=== PATIENT | female | born 1955 | race Caucasian/White ===

== ENCOUNTER 2019-08-28 19:42 | Observation (INO) | payer OTHER, SELFPAY ==
[2019-08-28] MEDS ORDERED: ONDANSETRON 4 MG/2 ML VIAL ONE (20:20)
[2019-08-28] MEDS ORDERED: MORPHINE 2 MG/ML SYR ONE (20:20)
[2019-08-28] MEDS ORDERED: ASPIRIN 81 MG CHEWABLE TABLET ONE (20:20)
[2019-08-28 20:59] LABS: Absolute Lymphocytes (CBC) 2.1 K/uL (0.7-4.9); Basophils % 0.5 % (0-1.3); Hematocrit 39.8 % (36.0-45.0); Lymphocytes % 26.1 % (15.3-44.8); MPV 8.8 fL (7.6-11.3); Protime INR 2.93; RBC Red Blood Cell Count 4.43 M/uL (3.86-4.86)
[2019-08-28 21:13] LABS: ALT/SGPT 17 U/L (12-78); AST/SGOT 21 U/L (15-37); Albumin 3.5 g/dL (3.4-5.0); Alkaline Phosphatase 65 U/L (45-117); BUN Blood Urea Nitrogen 20 mg/dL (7-18); Bicarbonate 26 mmol/L (21-32); Bilirubin Direct < 0.1 mg/dL (0-0.2); Bilirubin Total 0.4 mg/dL (0.2-1.0); Glucose Level 103 mg/dL (74-106); Lipase 140 U/L (73-393); Magnesium 2.2 mg/dL (1.8-2.4); NT PRO-BNP 397 pg/mL (<125); Potassium 4.1 mmol/L (3.5-5.1); Protein, Total 8.3 g/dL (6.4-8.2); Sodium Level 140 mmol/L (136-145); Troponin (Emerg Dept Use Only) < 0.02 ng/mL (0.0-0.045)
[2019-08-28] MEDS ORDERED: ALPRAZOLAM 0.25 MG TABLET PO PRN (22:15)
[2019-08-28] MEDS ORDERED: MORPHINE 4 MG/ML SYR IV PRN (22:15)
[2019-08-28] MEDS ORDERED: ACETAMINOPHEN 500 MG TAB PO PRN (22:15)
--- NOTE | 2019-08-29 00:24 | ER ---
Nurse's Notes [facility] Name: Silke Dill Age: 63 yrs Sex: Female : 1955 Arrival Date: 08/28/2019 Time: 19:43 Bed 20 Private MD: Diagnosis: Chest pain, unspecified Presentation: 08/28 19:45 Presenting complaint: Patient states: that yesterday she started to have right sided fc chest pain with slight shortness of breath and diarrhea. Denies any nausea or vomiting. Transition of care: patient was not received from another setting of care. Onset of symptoms was August 27, 2019. Risk Assessment: Do you want to hurt yourself or someone else? Patient reports no desire to harm self or others. Initial Sepsis Screen: Does the patient meet any 2 criteria? No. Patient's initial sepsis screen is negative. Does the patient have a suspected source of infection? No. Patient's initial sepsis screen is negative. Care prior to arrival: None. 19:45 Method Of Arrival: Wheelchair 19:45 Acuity: RASHAAD 3 fc Historical: - Allergies: 20:06 PENICILLINS; fc - Home Meds: 20:06 Coumadin 5 mg oral tab 1 tab on M,W,F, Sun and 1/2 tab of T,Th,Sat [Active]; fc valsartan-hydrochlorothiazide 80-12.5 mg oral tab 1 tab once daily [Active]; - PMHx: 20:06 Diabetes - NIDDM; fc - PSHx: 20:06 aortic valve replacement; ; fc - Immunization history:: Last tetanus immunization: unknown, Flu vaccine is not up to date. - Coronavirus screen:: The patient has NOT traveled to [place] in the past 14 days. The patient has NOT had contact with known/suspected case of Coronavirus?. - Social history:: Smoking status: Patient denies any tobacco usage or history of. Patient/guardian denies using alcohol, street drugs. - Ebola Screening: : Patient negative for fever greater than or equal to 101.5 degrees Fahrenheit, and additional compatible Ebola Virus Disease symptoms Patient denies exposure to infectious person Patient denies travel to an Ebola-affected area in the 21 days before illness onset. Screenin:45 Abuse screen: Denies threats or abuse. Nutritional screening: No deficits noted. fc Tuberculosis screening: No symptoms or risk factors identified. Fall Risk None identified. Assessment: 20:20 General: Appears in no apparent distress. comfortable, Behavior is calm, cooperative. mg2 Pain: Complains of pain in chest Pain does not radiate. Pain began gradually, Is intermittent. Neuro: Level of Consciousness is awake, alert, obeys commands, Oriented to person, place, time, situation. Cardiovascular: Capillary refill < 3 seconds Patient's skin is warm and dry. Respiratory: Airway is patent Respiratory effort is even, unlabored, Respiratory pattern is regular, symmetrical. GI: No signs and/or symptoms were reported involving the gastrointestinal system. : No signs and/or symptoms were reported regarding the genitourinary system. EENT: No signs and/or symptoms were reported regarding the EENT system. Derm: Skin is intact, is healthy with good turgor, Skin is pink, warm \T\ dry. normal. Musculoskeletal: Circulation, motion, and sensation intact. Capillary refill < 3 seconds. 21:17 Reassessment: Patient appears in no apparent distress at this time. Patient and/or mg2 family updated on plan of care and expected duration. Pain level reassessed. Patient is alert, oriented x 3, equal unlabored respirations, skin warm/dry/pink. 23:05 Reassessment: called the floor and nurse will call me back to receive the report. mg2 23:32 Reassessment: called the nurse but she is still medicating one patient. [place] [facility] [place] per [place]. Vital Signs: 19:45 BP 168 / 78; Pulse 74; Resp 20; Temp 98.1(O); Pulse Ox 100% on R/A; Weight 81.65 kg (R); Height 5 ft. 0 in. (152.40 cm) (R); Pain 8/10; 21:16 BP 161 / 89; Pulse 69; Resp 18; Pulse Ox 98% on R/A; mg2 22:50 BP 134 / 59; Pulse 65; Resp 18; Temp 98; Pulse Ox 99% on R/A; mg2 19:45 Body Mass Index 35.15 (81.65 kg, 152.40 cm) ED Course: 19:43 Patient arrived in ED. cl3 19:45 Jose A Alejandro PA is PHCP. cp 19:45 Raul Kilgore MD is Attending Physician. cp 19:45 Arm band placed on Patient placed in an exam room, on a stretcher. fc 19:45 Patient has correct armband on for positive identification. Placed in gown. Bed in low fc position. Call light in reach. Side rails up X 1. playground monitor on. Pulse ox on. NIBP on. 19:45 No provider procedures requiring assistance completed. fc 20:00 Triage completed. fc 20:07 Aidan Nolen, VICTORIANO is Primary Nurse. mg2 20:37 Inserted saline lock: 20 gauge in left forearm, using aseptic technique. Blood mg2 collected. 21:16 Patient maintains SpO2 saturation greater than 95% on room air. mg2 22:05 Cheli Harvey MD is Hospitalizing Provider. cp 23:15 Chest Single View In Process Unspecified. EDMS 23:43 Patient admitted, IV remains in place. mg2 Administered Medications: 20:35 Drug: morphine 2 mg Route: IVP; Site: left forearm; mg2 21:19 Follow up: Response: No adverse reaction; RASS: Alert and Calm (0) mg2 20:35 Drug: Zofran 4 mg Route: IVP; Site: left forearm; mg2 21:18 Follow up: Response: No adverse reaction mg2 20:35 Drug: Aspirin Chewable Tablet 324 mg Route: PO; mg2 21:18 Follow up: Response: No adverse reaction mg2 Outcome: 22:06 Decision to Hospitalize by Provider. cp 23:43 Admitted to Tele accompanied by tech, via wheelchair, room 410, with chart, Report mg2 called to VICTORIANO Carlos 23:43 Condition: stable 23:43 Instructed on the need for admit, Demonstrated understanding of instructions. 23:56 Patient left the ED. mg2 Signatures: Dispatcher [employer] EDMS Mikayla Barba RN RN fc Jose A Alejandro PA PA cp Aidan Nolen RN RN mg2 Sima Villar cl3
--- NOTE | 2019-08-29 00:24 | EDPHYS ---
Physician Documentation [facility] Name: Silke Dill Age: 63 yrs Sex: Female : 1955 Arrival Date: 08/28/2019 Time: 19:43 Bed 20 Private MD: ED Physician Raul Kilgore HPI: 08/28 20:00 This 63 yrs old Female presents to ER via Unassigned with complaints of Chest cp Pain. 20:00 The patient or guardian reports chest pain that is located primarily in the anterior cp chest wall, right. 20:00 Onset: yesterday. The pain does not radiate. Associated signs and symptoms: Pertinent cp positives: shortness of breath, diarrhea, Pertinent negatives: abdominal pain, cough, diaphoresis, vomiting. Duration: The patient or guardian reports a single episode, that is still ongoing. Historical: - Allergies: 20:06 PENICILLINS; fc - Home Meds: 20:06 Coumadin 5 mg oral tab 1 tab on M,W,F, Sun and 1/2 tab of T,Th,Sat [Active]; fc valsartan-hydrochlorothiazide 80-12.5 mg oral tab 1 tab once daily [Active]; - PMHx: 20:06 Diabetes - NIDDM; fc - PSHx: 20:06 aortic valve replacement; ; fc - Immunization history:: Last tetanus immunization: unknown, Flu vaccine is not up to date. - Coronavirus screen:: The patient has NOT traveled to [place] in the past 14 days. The patient has NOT had contact with known/suspected case of Coronavirus?. - Social history:: Smoking status: Patient denies any tobacco usage or history of. Patient/guardian denies using alcohol, street drugs. - Ebola Screening: : Patient negative for fever greater than or equal to 101.5 degrees Fahrenheit, and additional compatible Ebola Virus Disease symptoms Patient denies exposure to infectious person Patient denies travel to an Ebola-affected area in the 21 days before illness onset. ROS: 20:05 Constitutional: Negative for body aches, chills, fever, poor PO intake. cp 20:05 Eyes: Negative for injury, pain, redness, and discharge. cp 20:05 ENT: Negative for drainage from ear(s), ear pain, sore throat, difficulty swallowing, difficulty handling secretions. 20:05 Cardiovascular: Positive for chest pain, Negative for edema, palpitations. 20:05 Respiratory: Positive for shortness of breath, Negative for cough, wheezing. 20:05 Abdomen/GI: Positive for diarrhea, Negative for vomiting, constipation. 20:05 Back: Negative for pain at rest, pain with movement, radiated pain. 20:05 Skin: Negative for rash. 20:05 Neuro: Negative for altered mental status, headache, syncope, weakness. 20:05 All other systems are negative. Exam: 20:00 ECG was reviewed by the Attending Physician. cp 20:10 Constitutional: The patient appears in no acute distress, alert, awake, cp non-diaphoretic, non-toxic, well developed, well nourished, obese. 20:10 Head/Face: Normocephalic, atraumatic. cp 20:10 Eyes: Periorbital structures: appear normal, Conjunctiva: normal, no exudate, no injection, Sclera: no appreciated abnormality, Lids and lashes: appear normal, bilaterally. 20:10 ENT: External ear(s): are unremarkable, Nose: is normal, Mouth: Lips: moist, Oral mucosa: pink and intact, moist, Posterior pharynx: is normal, airway is patent, no erythema, no exudate. 20:10 Neck: ROM/movement: is normal, is supple, no meningismus, no nuchal rigidity. 20:10 Chest/axilla: Inspection: normal, Palpation: is normal, no crepitus, no tenderness. 20:10 Cardiovascular: Rate: normal, Rhythm: regular, Edema: is not appreciated, JVD: is not appreciated. 20:10 Respiratory: the patient does not display signs of respiratory distress, Respirations: normal, no use of accessory muscles, no retractions, no splinting, no tachypnea, labored breathing, is not present, Breath sounds: are clear throughout, no decreased breath sounds, no wheezing. 20:10 Abdomen/GI: Inspection: abdomen appears normal, Bowel sounds: active, all quadrants, Palpation: abdomen is soft and non-tender, in all quadrants. 20:10 Skin: no rash present. 20:10 Neuro: Orientation: to person, place \T\ time. Mentation: is normal, Motor: moves all fours, strength is normal, Sensation: is normal. Vital Signs: 19:45 BP 168 / 78; Pulse 74; Resp 20; Temp 98.1(O); Pulse Ox 100% on R/A; Weight 81.65 kg fc (R); Height 5 ft. 0 in. (152.40 cm) (R); Pain 8/10; 21:16 BP 161 / 89; Pulse 69; Resp 18; Pulse Ox 98% on R/A; mg2 22:50 BP 134 / 59; Pulse 65; Resp 18; Temp 98; Pulse Ox 99% on R/A; mg2 19:45 Body Mass Index 35.15 (81.65 kg, 152.40 cm) fc MDM: 19:48 Patient medically screened. cp 20:30 Differential diagnosis: abnormal EKG, acute myocardial infarction, cholecystitis, cp Cholelithiasis pancreatitis, pneumothorax, pulmonary embolus, stable angina, thoracic aortic disection, unstable angina. 22:05 Data reviewed: vital signs, nurses notes, lab test result(s), EKG, radiologic studies, cp plain films, and as a result, I will admit patient. 22:05 The patient was given aspirin in the Emergency Department. Test interpretation: by ED cp physician or midlevel provider: ECG, plain radiologic studies, chest xray negative for infiltrates. Physician consultation: Cheli Harvey MD was called at 22:00, was contacted at 22:00, regarding admission, to the telemetry unit. patient's condition. 08/28 19:57 Order name: Basic Metabolic Panel cp 08/28 19:57 Order name: CBC with Diff cp 08/28 19:57 Order name: LFT's cp 08/28 19:57 Order name: Magnesium cp 08/28 19:57 Order name: NT PRO-BNP cp 08/28 19:57 Order name: PT-INR cp 08/28 19:57 Order name: Troponin (emerg Dept Use Only) cp 08/28 19:57 Order name: Lipase cp 08/28 22:59 Order name: CBC with Automated Diff EDIL 08/28 22:59 Order name: Protime (+INR) EDIL 08/28 23:02 Order name: Basic Metabolic Panel EDIL 08/28 23:02 Order name: Liver (Hepatic) Function EDIL 08/28 23:02 Order name: Troponin (Emerg Dept Use Only) EDIL 08/28 23:02 Order name: NT PRO-BNP EDIL 08/28 19:57 Order name: XRAY Chest (1 view) cp 08/28 23:02 Order name: Magnesium [facility]IL 08/28 23:02 Order name: Lipase [facility]IL 08/28 23:15 Order name: Chest Single View [facility] 08/28 23:43 Order name: Echo with Doppler [facility]IL 08/28 23:43 Order name: Echo with Doppler [facility] 08/28 23:44 Order name: Basic Metabolic Panel [facility] 08/28 23:44 Order name: Basic Metabolic Panel [facility] 08/28 23:44 Order name: CBC with Automated Diff [facility] 08/28 23:44 Order name: CBC with Automated Diff [facility] 08/28 23:44 Order name: Lipid Profile [facility] 08/28 23:44 Order name: Lipid Profile [facility] 08/28 23:44 Order name: Troponin I [facility] 08/28 23:44 Order name: Troponin I [facility] 08/28 23:44 Order name: Troponin I [facility] 08/28 19:48 Order name: EKG; Complete Time: 23:07 cp 08/28 19:48 Order name: EKG - Nurse/Tech; Complete Time: 20:36 cp 08/28 19:57 Order name: Cardiac monitoring; Complete Time: 20:35 cp 08/28 19:57 Order name: IV Saline Lock; Complete Time: 20:36 cp 08/28 19:57 Order name: Labs collected and sent; Complete Time: 20:36 cp 08/28 19:57 Order name: O2 Per Protocol; Complete Time: 20:36 cp 08/28 19:57 Order name: O2 Sat Monitoring; Complete Time: 20:36 cp 08/28 23:42 Order name: CONS Physician Consult [place] 08/28 23:42 Order name: Heart Healthy [facility] 08/28 23:43 Order name: EKG Electrocardiogram EDIL 08/28 23:43 Order name: EKG Electrocardiogram EDIL EC:00 Rate is 77 beats/min. Rhythm is regular. MS interval is prolonged at 204 msec. QRS cp interval is normal. QT interval is normal. Interpreted by me. Reviewed by me. Administered Medications: 20:35 Drug: morphine 2 mg Route: IVP; Site: left forearm; mg2 21:19 Follow up: Response: No adverse reaction; RASS: Alert and Calm (0) mg2 20:35 Drug: Zofran 4 mg Route: IVP; Site: left forearm; mg2 21:18 Follow up: Response: No adverse reaction mg2 20:35 Drug: Aspirin Chewable Tablet 324 mg Route: PO; mg2 21:18 Follow up: Response: No adverse reaction mg2 Disposition: 08/29 00:25 Co-signature as Attending Physician, Raul Kilgore MD. rn Disposition: 08/28/19 22:06 Hospitalization ordered by Cheli Harvey for Observation. Preliminary diagnosis is Chest pain, unspecified. - Bed requested for Telemetry/MedSurg (observation). - Status is Observation. mg2 - Condition is Stable. - Problem is new. - Symptoms have improved. Signatures: Dispatcher [employer] EDMS Silvina Tirado RN RN Mikayla Isabel RN RN Raul Kilgore MD MD rn Page, Corey, PA PA cp Gardose, Michele, RN RN mg2 Corrections: (The following items were deleted from the chart) 08/28 22:38 22:06 Hospitalization Ordered by Cheli Harvey MD for Observation. Preliminary dw diagnosis is Chest pain, unspecified. Bed requested for Telemetry/MedSurg (observation). Status is Observation. Condition is Stable. Problem is new. Symptoms have improved. cp 23:56 22:38 08/28/2019 22:06 Hospitalization Ordered by Cheli Harvey MD for Observation. mg2 Preliminary diagnosis is Chest pain, unspecified. Bed requested for Telemetry/MedSurg (observation). Status is Observation. Condition is Stable. Problem is new. Symptoms have improved. dw
[2019-08-29 00:31] VITALS: BMI 38.3
[2019-08-29 06:36] LABS: Absolute Lymphocytes (CBC) 2.4 K/uL (0.7-4.9); Basophils % 0.6 % (0-1.3); Hematocrit 35.9 % (36.0-45.0); Lymphocytes % 31.8 % (15.3-44.8); MPV 8.9 fL (7.6-11.3); RBC Red Blood Cell Count 4.07 M/uL (3.86-4.86)
[2019-08-29 06:50] LABS: BUN Blood Urea Nitrogen 19 mg/dL (7-18); Bicarbonate 30 mmol/L (21-32); Glucose Level 98 mg/dL (74-106); HDL Cholesterol 66 mg/dL (40-60); LDL Cholesterol, Calculated 92 (<130); Potassium 3.7 mmol/L (3.5-5.1); Sodium Level 141 mmol/L (136-145); Troponin I < 0.02 ng/mL (0.0-0.045)
--- NOTE | 2019-08-29 07:17 | RAD REPORT ---
EXAM DESCRIPTION: RAD - Chest Single View - 08/28/2019 8:15 pm CLINICAL HISTORY: chest pain COMPARISON: CHEST SINGLE VIEW dated 01/13/2013; CHEST SINGLE VIEW dated 10/24/2012 TECHNIQUE: AP portable chest image was obtained 08/28/2019 8:15 pm . FINDINGS: Lungs are clear. Trachea is midline. Sternotomy wires are in place. Aortic valve replaceme nt noted. Heart and vasculature are normal. No measurable pleural effusion and no pneumothorax. No ac sofiya bony abnormality seen. No acute aortic findings suspected. IMPRESSION: No acute cardiopulmonary process. No significant interval change.
--- NOTE | 2019-08-29 08:18 | EKG ---
Test Date: 2019-08-28 Test Time: 19:56:14 Life Sciences Director: MEASUREMENT RESULTS: Intervals: Rate: 69 NV: 222 QRSD: 84 QT: 426 QTc: 456 [place]: P: 72 NV: 222 QRS: 29 T: 52 INTERPRETIVE STATEMENTS: Sinus rhythm with 1st degree AV block Otherwise normal ECG Compared to ECG 12/30/2013 07:56:00 First degree AV block now present T-wave abnormality no longer present Electronically Signed On 08-29-19 08:17:44 TRAFFIC DIVISION COMMANDING OFFICER by Rene Ennis
[2019-08-29] MEDS ORDERED: ASPIRIN EC 81 MG TAB PO SCH (09:00)
[2019-08-29] MEDS ORDERED: METOPROLOL TAR 50 MG TAB PO SCH (09:00)
[2019-08-29] MEDS ORDERED: ENOXAPARIN 40 MG/0.4 ML SQ SCH (09:00)
--- NOTE | 2019-08-29 09:16 | P.HP ---
Certification for Inpatient Patient admitted to: Observation With expected LOS: <2 Midnights Patient will require the following post-hospital care: None Practitioner: I am a practitioner with admitting privileges, knowledge of patient current condition, hospital course, and medical plan of care. Services: Services provided to patient in accordance with Admission requirements found in Title 42 Section 412.3 of the Code of Federal Regulations Patient History Date of Service: 08/28/19 Reason for admission: EPIGASTRIC AND STERNAL CHEST PAIN History of Present Illness: PATIENT IS A 63-YEAR-OLD FEMALE WHO CAME INTO THE EMERGENCY ROOM WITH PAIN ALONG THE STERNAL REGION AND THE EPIGASTRIC REGION. THE PAIN WAS VERY SEVERE AND SHE CAME INTO THE EMERGENCY ROOM FOR FURTHER EVALUATION. PATIENT'S INITIAL TROPONINS AND EKG WERE UNREMARKABLE. HOWEVER, PATIENT DOES HAVE MANY RISK FACTORS AND SHE WILL BE ADMITTED TO THE HOSPITAL FOR FURTHER EVALUATION FOR AN ACUTE CORONARY SYNDROME. IF PATIENT'S TROPONINS ARE NEGATIVE AND CARDIAC STATUS IS UNREMARKABLE THE PATIENT SHOULD BE STABLE FOR DISCHARGE HOME. WE WILL GET CARDIOLOGY CONSULTATION AND WILL SEE IF THEY RECOMMEND A STRESS TEST PRIOR TO DISCHARGE. IF THEY DO WE WILL ARRANGE FOR THIS PRIOR TO GOING HOME. Allergies Sulfa (Sulfonamide Antibiotics) Allergy (Mild, Verified 08/29/19 00:29) Hives/Rash Penicillins Adverse Reaction (Intermediate, Verified 08/29/19 00:29) Hives/Rash Home Medications: Valsartan/Hydrochlorothiazide [Valsartan-Hctz 80-12.5 mg Tab] 1 tab PO DAILY Warfarin Sodium [Coumadin*] 2.5 mg PO SEECOM 08/29/19 Warfarin Sodium [Coumadin*] 5 mg PO SEECOM 08/29/19 - Past Medical/Surgical History Has patient received pneumonia vaccine in the past: No Diabetic: Yes -: DM -: aortic valve replacement -: c. section - Family History Father Family History: Reviewed- Non-Contributory - Social History Smoking Status: Never smoker Smoking therapy provided: Yes Alcohol use: No CD- Drugs: No Review of Systems 10-point ROS is otherwise unremarkable Physical Examination - Vital Signs Temperature: 97.5 F Blood Pressure: 145/62 Pulse: 65 Respirations: 16 Pulse Ox (%): 96 - Physical Exam General: Alert, In no apparent distress, Oriented x3 HEENT: Atraumatic, PERRLA, Mucous membr. moist/pink, EOMI, Sclerae nonicteric Neck: Supple, 2+ carotid pulse no bruit, No LAD, Without JVD or thyroid abnormality Respiratory: Clear to auscultation bilaterally, Normal air movement Cardiovascular: Regular rate/rhythm, Normal S1 S2, No murmurs Gastrointestinal: Normal bowel sounds, Soft and benign, Non-distended, No tenderness, No rebound, No guarding Musculoskeletal: No clubbing, No swelling, No tenderness Integumentary: No rashes Neurological: Normal gait, Normal speech, Normal strength at 5/5 x4 extr, Normal tone, Sensation intact, Cranial nerves 3-12 intact, Normal affect Lymphatics: No axilla or inguinal lymphadenopathy - Studies Laboratory Data (last 24 hrs) 08/28/19 20:30: PT 33.2 H, INR 2.93 08/28/19 20:30: WBC 8.1, Hgb 13.1, Hct 39.8, Plt Count 247 08/28/19 20:30: Sodium 140, Potassium 4.1, BUN 20 H, Creatinine 0.82, Glucose 103, Magnesium 2.2, Total Bilirubin 0.4, AST 21, ALT 17, Alkaline Phosphatase 65 , Lipase 140 08/28/19 19:57: Lipase Cancelled 08/28/19 19:57: PT Cancelled, INR Cancelled 08/28/19 19:57: WBC Cancelled, Hgb Cancelled, Hct Cancelled, Plt Count Cancelled 08/28/19 19:57: Sodium Cancelled, Potassium Cancelled, BUN Cancelled, Creatinine Cancelled, Glucose Cancelled, Magnesium Cancelled, Total Bilirubin Cancelled, AST Cancelled, ALT Cancelled, Alkaline Phosphatase Cancelled Assessment & Plan - Problems (Diagnosis) (1) Chest pain, rule out acute myocardial infarction Current Visit: Yes Status: Acute (2) History of hypertension Current Visit: Yes Status: Acute (3) Family history of coronary artery disease Current Visit: Yes Status: Acute (4) Pneumonia Current Visit: Yes Status: Acute - Plan 1. SERIAL TROPONINS AND EKG 2. CARDIOLOGY CONSULTATION 3. ECHOCARDIOGRAM AND POSSIBLY REPEAT AN INPATIENT STRESS TEST(PENDING CARDIOLOGY EVALUATION) 4. ANTI-PLATELET THERAPY, ANTI COAGULATION, BETA-DEBBIE, STATIN, AND O2 NEEDED 5. IV MORPHINE FOR PAIN 6. NITRO P.R.N. Discharge Plan: Home Plan to discharge in: Greater than 2 days - Advance Directives Does patient have a Living Will: No Does patient have a Durable POA for Healthcare: No Critical Care: No Time Spent Managing PTS Care (In Minutes): 45
[2019-08-29] MEDS ORDERED: ONDANSETRON 4 MG/2 ML VIAL IV PRN (10:07)
--- NOTE | 2019-08-29 11:12 | ECHO ---
HEIGHT: 5 ft 0 in WEIGHT: 193 lb 0 oz DATE OF STUDY: 08/29/[address]: Cheli Harvey MD 2-DIMENSIONAL: YES M.MODE: YES DOPPLER: YES COLOR FLOW: YES TDS: NO PORTABLE: NO DEFINITY: NO BUBBLE STUDY: NO DIAGNOSIS: CHEST PAIN CARDIAC HISTORY: CATHERIZATION: YES SURGERY: YES PROSTHETIC VALVE: YES PACEMAKER: NO MEASUREMENTS (cm) DIASTOLIC (NORMALS) SYSTOLIC (NORMALS) IVSd 1.1 (0.6-1.2) LA Diam 3.7 (1.9-4.0) LVEF 68% LVIDd 4.3 (3.5-5.7) LVIDs 2.7 (2.0-3.5) %FS 38% LVPWd 1.0 (0.6-1.2) Ao Diam 2.2 (2.0-3.7) 2 DIMENSIONAL ASSESSMENT: RIGHT ATRIUM: NORMAL LEFT ATRIUM: NORMAL RIGHT VENTRICLE: NORMAL LEFT VENTRICLE: NORMAL TRICUSPID VALVE: NORMAL MITRAL VALVE: NORMAL PULMONIC VALVE: NORMAL AORTIC VALVE: PROSTHETIC PERICARDIAL EFFUSION: NONE AORTIC ROOT: NORMAL LEFT VENTRICULAR WALL MOTION: NORMAL. DOPPLER/COLOR FLOW: MILD PROSTHETIC AORTIC VALVE STENOSIS. PEAK/MEAN GRADIENT 40/21mmHg. ESTIMATED AORTIC VALVE AREA 1.6 CENTIMETERS SQUARED. NO AORTIC REGURGITATION. MILD TRICUSPID REGURGITATION, NORMAL RIGHT VENTRICULAR SYSTOLIC PRESSURE. COMMENTS: NORMAL LEFT VENTRICULAR EJECTION FRACTION. PROSTHETIC AORTIC VALVE WITH MILD AORTIC STENOSIS WITH NO AORTIC REGURGITATION. MILD TRICUSPID REGURGITATION. TECHNOLOGIST: JACY TAI
--- NOTE | 2019-08-29 11:26 | EKG ---
Test Date: 2019-08-29 Test Time: 08:51:50 Distribution Tech: RT Plunkett MEASUREMENT RESULTS: Intervals: Rate: 59 RI: 250 QRSD: 86 QT: 442 QTc: 437 [place]: P: 5 RI: 250 QRS: 28 T: 41 INTERPRETIVE STATEMENTS: Sinus bradycardia with 1st degree AV block Otherwise normal ECG Compared to ECG 08/28/2019 19:56:14 Sinus rhythm no longer present Electronically Signed On 08-29-19 11:25:38 MARKETING AREA MANAGER by Rene Enins
--- NOTE | 2019-08-29 14:52 | P.DS ---
Admission Date: 08/28/19 Discharge Date: 08/29/19 Disposition: ROUTINE DISCHARGE Discharge Condition: GOOD Reason for Admission: EPIGASTRIC AND STERNAL CHEST PAIN - Problems (1) Chest pain, rule out acute myocardial infarction Current Visit: Yes Status: Acute (2) Family history of coronary artery disease Current Visit: Yes Status: Acute (3) History of aortic valve replacement Current Visit: Yes Status: Acute (4) History of hypertension Current Visit: Yes Status: Acute Brief History of Present Illness: 63-year-old woman with a history of aortic valve replacement presented to the ED with a complaint of anterior chest pain and epigastric pain, rated as severe. Her initial troponin in the ED was negative. Chest x-ray showed no acute disease. EKG read sinus bradycardia with first-degree AV block. Patient was placed under observation for acute coronary syndrome rule out. Hospital Course: Troponin trended was negative. The patient experienced intermittent chest pain during the hospital stay. She also developed nausea from the IV opioids given for the chest pain. Examination revealed significantly tender lower sternal area. The patient's chest pain is noncardiac and secondary to musculoskeletal pain. Echocardiogram done showed normal EF and no wall motion abnormality. She is on Coumadin anticoagulation and her INR was therapeutic. Acute coronary syndrome has been ruled out. She is deemed clinically stable for discharge. She is discharged to have outpatient stress test done. She has been provided with the phone number to call to schedule the stress test. Vital Signs/Physical Exam: Temp Pulse Resp BP Pulse Ox 97.8 F 58 16 134/63 95 08/29/19 12:00 08/29/19 12:00 08/29/19 12:00 08/29/19 12:08/29/19 12:00 General: Alert, In no apparent distress, Oriented x3 HEENT: Mucous membr. moist/pink, Sclerae nonicteric Neck: Supple, JVD not distended Respiratory: Normal air movement, Other (Lower sternum is tender to palpation.) Cardiovascular: No edema, Regular rate/rhythm, Normal S1 S2 Gastrointestinal: Normal bowel sounds, Soft and benign, No tenderness Musculoskeletal: No swelling, No erythema Integumentary: No rashes Neurological: Normal strength at 5/5 x4 extr Laboratory Data at Discharge: WBC 7.6 K/uL (4.3-10.9) 08/29/19 05:48 Hgb 11.9 g/dL (12.0-15.0) L 08/29/19 05:48 Hct 35.9 % (36.0-45.0) L 08/29/19 05:48 Plt Count 255 K/uL (152-406) 08/29/19 05:48 PT 33.2 SECONDS (9.5-12.5) H 08/28/19 20:30 INR 2.93 08/28/19 20:30 Sodium 141 mmol/L (136-145) 08/29/19 05:48 Potassium 3.7 mmol/L (3.5-5.1) 08/29/19 05:48 BUN 19 mg/dL (7-18) H 08/29/19 05:48 Creatinine 0.95 mg/dL (0.55-1.3) 08/29/19 05:48 Glucose 98 mg/dL (74-106) 08/29/19 05:48 Magnesium 2.2 mg/dL (1.8-2.4) 08/28/19 20:30 Total Bilirubin 0.4 mg/dL (0.2-1.0) 08/28/19 20:30 AST 21 U/L (15-37) 08/28/19 20:30 ALT 17 U/L (12-78) 08/28/19 20:30 Alkaline Phosphatase 65 U/L (45-117) 08/28/19 20:30 Troponin I < 0.02 ng/mL (0.0-0.045) 08/29/19 05:48 Triglycerides 67 mg/dL (<150) 08/29/19 05:48 Cholesterol 171 mg/dL (<200) 08/29/19 05:48 HDL Cholesterol 66 mg/dL (40-60) H 08/29/19 05:48 Cholesterol/HDL Ratio 2.59 08/29/19 05:48 Lipase 140 U/L (73-393) 08/28/19 20:30 Home Medications: Tramadol HCl [Ultram] 50 mg PO Q6H PRN #20 tablet 08/29/19 Valsartan/Hydrochlorothiazide [Valsartan-Hctz 80-12.5 mg Tab] 1 tab PO DAILY Warfarin Sodium [Coumadin*] 2.5 mg PO SEECOM 08/29/19 Warfarin Sodium [Coumadin*] 5 mg PO SEECOM 08/29/19 New Medications: Tramadol HCl [Ultram] 50 mg PO Q6H PRN #20 tablet PRN Reason: Pain Scale 5-7 (Moderate) Diet: AHA Activity: Fall precautions Followup: Glenn Tejeda MD [ACTIVE - CAN ADMIT] - 1-2 Weeks
[2019-08-29 16:17] VITALS: BP 114/53; TEMP 97.5
[2019-08-29 16:24] VITALS: O2SAT 96
[2019-08-29] MEDS ORDERED: WARFARIN SODIUM 3 MG TAB PO SCH (21:00)
[2019-08-29] MEDS ORDERED: WARFARIN SODIUM 6 MG TAB PO SCH (21:00)
[2019-08-29] MEDS ORDERED: METOPROLOL TAR 25 MG TAB PO SCH (21:00)
== END 2019-08-29 20:50 | disposition home or self-care (01) ==
LOC: ER 19:42 → ERHOLD 22:43 → 4TH 23:42
PROVIDERS: ADMIT Hospitalist; ATTEND Internal Medicine
DX: R07.89 Other chest pain (principal); R00.1 Bradycardia, unspecified; I44.0 Atrioventricular block, first degree; R11.0 Nausea; T40.2X5A Adverse effect of other opioids, initial encounter; X58.XXXA Exposure to other specified factors, initial encounter; I35.0 Nonrheumatic aortic (valve) stenosis; I07.1 Rheumatic tricuspid insufficiency; I10 Essential (primary) hypertension; E11.9 Type 2 diabetes mellitus without complications; Z79.01 Long term (current) use of anticoagulants; Z79.899 Other long term (current) drug therapy; Z95.2 Presence of prosthetic heart valve; Z82.49 Family history of ischemic heart disease and other diseases of the circulatory system
CPT/HCPCS: 36415; 71045; 80048; 80061; 80076; 83690; 83735; 83880; 84484; 85025; 85610; 93005; 93306; 96374; 96375; 99285; G0378; J2270; J2405

== ENCOUNTER 2020-01-13 18:27 | Emergency (ER) | payer OTHER, SELFPAY ==
[2020-01-13] MEDS ORDERED: ONDANSETRON 4 MG/2 ML VIAL ONE (19:45)
[2020-01-13] MEDS ORDERED: NA CHLORIDE 0.9% 1,000 ML ONE (19:45)
[2020-01-13 19:47] LABS: Absolute Lymphocytes (CBC) 1.9 K/uL (0.7-4.9); Basophils % 0.9 % (0-1.3); Hematocrit 38.2 % (36.0-45.0); Lymphocytes % 22.4 % (15.3-44.8); MPV 9.3 fL (7.6-11.3); RBC Red Blood Cell Count 4.26 M/uL (3.86-4.86)
[2020-01-13 19:58] LABS: Albumin 3.8 g/dL (3.4-5.0); Bilirubin Direct 0.1 mg/dL (0-0.2); Bilirubin Total 0.4 mg/dL (0.2-1.0); Potassium 4.2 mmol/L (3.5-5.1); Protein, Total 8.7 g/dL (6.4-8.2)
--- NOTE | 2020-01-13 21:03 | EDPHYS ---
Physician Documentation [facility] Name: Silke Dill Age: 64 yrs Sex: Female : 1955 Arrival Date: 01/13/2020 Time: 18:31 Bed 6 Private MD: ED Physician Jorge Casas HPI: 01/12 19:17 This 64 yrs old Female presents to ER via Wheelchair with complaints of Heat pm1 Exhaustion. 19:17 The patient has experienced near-syncope, felt faint. Onset: The symptoms/episode pm1 began/occurred just prior to arrival. Context: occurred while the patient was waiting outside the hospital for her . Just prior to the episode the patient experienced dizziness, lightheadedness. Associated injury: The patient did not suffer any apparent associated injury. Associated signs and symptoms: Pertinent positives: nausea, Pertinent negatives: abdominal pain, chest pain, palpitations, shortness of breath. Current symptoms: dizziness and nausea that has improved. Patient was waiting outside in the heat for her who was a patient in the ER. Historical: - Allergies: 18:40 PENICILLINS; ca1 - Home Meds: 18:40 Coumadin 5 mg Oral tab 1 tab on M,W,F, Sun and 1/2 tab of T,Th,Sat [Active]; ca1 - PMHx: 18:40 Diabetes - NIDDM; Hypertension; ca1 - PSHx: 18:40 aortic valve replacement; ; ca1 - Immunization history:: Adult Immunizations up to date. - Social history:: Smoking status: Patient denies any tobacco usage or history of. ROS: 19:17 Constitutional: Negative for fever, chills, and weight loss, Eyes: Negative for injury, pm1 pain, redness, and discharge, ENT: Negative for injury, pain, and discharge, Neck: Negative for injury, pain, and swelling, Cardiovascular: Negative for chest pain, palpitations, and edema, Respiratory: Negative for shortness of breath, cough, wheezing, and pleuritic chest pain, Back: Negative for injury and pain. 19:17 : Negative for injury, bleeding, discharge, and swelling, MS/Extremity: Negative for injury and deformity, Skin: Negative for injury, rash, and discoloration, Neuro: Negative for headache, weakness, numbness, tingling, and seizure. 19:17 Abdomen/GI: Positive for nausea, Negative for abdominal pain, vomiting, diarrhea, constipation. Exam: 19:17 Abdomen/GI: Exam negative for acute changes, Inspection: abdomen appears normal, pm1 Palpation: abdomen is soft and non-tender, in all quadrants, mass, is not appreciated, rebound tenderness, is not appreciated. 19:17 Constitutional: This is a well developed, well nourished patient who is awake, alert, and in no acute distress. Head/Face: Normocephalic, atraumatic. Neck: Trachea midline, no thyromegaly or masses palpated, and no cervical lymphadenopathy. Supple, full range of motion without nuchal rigidity, or vertebral point tenderness. No Meningismus. Chest/axilla: Normal chest wall appearance and motion. Nontender with no deformity. No lesions are appreciated. Cardiovascular: Regular rate and rhythm with a normal S1 and S2. No gallops, murmurs, or rubs. Normal PMI, no JVD. No pulse deficits. Respiratory: Lungs have equal breath sounds bilaterally, clear to auscultation and percussion. No rales, rhonchi or wheezes noted. No increased work of breathing, no retractions or nasal flaring. Back: No spinal tenderness. No costovertebral tenderness. Full range of motion. Skin: Warm, dry with normal turgor. Normal color with no rashes, no lesions, and no evidence of cellulitis. MS/ Extremity: Pulses equal, no cyanosis. Neurovascular intact. Full, normal range of motion. 19:17 Neuro: Exam negative for acute changes, Orientation: is normal, Mentation: is normal, Motor: is normal, moves all fours, Gait: is steady, at a normal pace, without difficulty. Vital Signs: 18:36 BP 122 / 62; Pulse 69; Resp 19 S; Temp 98.3(O); Pulse Ox 100% on R/A; Weight 72.57 kg ca1 (R); Height 5 ft. 0 in. (152.40 cm) (R); 19:48 BP 178 / 53; Pulse 64; Resp 18 S; Pulse Ox 100% on R/A; jd3 20:52 BP 128 / 53; Pulse 68; Resp 17 S; Pulse Ox 97% on R/A; jd3 18:36 Body Mass Index 31.25 (72.57 kg, 152.40 cm) ca1 MDM: 19:20 Patient medically screened. pm1 20:21 Data reviewed: vital signs. Data interpreted: Pulse oximetry: on room air is 100 %. pm1 Interpretation: normal. Counseling: I had a detailed discussion with the patient and/or guardian regarding: the historical points, exam findings, and any diagnostic results supporting the discharge/admit diagnosis, lab results. 01/12 18:55 Order name: Glucose, Ancillary Testing; Complete Time: 19:17 EDMS 01/12 19:14 Order name: Basic Metabolic Panel; Complete Time: 20:07 tw4 01/12 19:14 Order name: CBC with Diff; Complete Time: 20:07 tw4 01/12 19:14 Order name: Hepatic Function; Complete Time: 20:07 tw4 01/12 19:14 Order name: Lipase; Complete Time: 20:07 tw4 01/12 19:14 Order name: CPK; Complete Time: 20:07 tw4 01/12 18:53 Order name: EKG - Nurse/Tech; Complete Time: 18:53 [facility] 01/12 19:14 Order name: IV Saline Lock; Complete Time: 19:37 tw4 01/12 19:14 Order name: Labs collected and sent; Complete Time: 19:37 tw4 Administered Medications: 19:43 Drug: NS 0.9% 1000 ml Route: IV; Rate: 1000 ml; Site: left antecubital; jd3 20:40 Follow up: Response: No adverse reaction; IV Status: Completed infusion; IV Intake: jd3 1000ml 19:44 Drug: Zofran (Ondansetron) 4 mg Route: IVP; Site: left antecubital; jd3 20:40 Follow up: Response: No adverse reaction jd3 Disposition: 01/13 07:46 Co-signature as Attending Physician, Jorge Casas MD I agree with the assessment and 4 plan of care. Disposition: 01/13/20 21:02 Discharged to Home. Impression: Exposure to excessive natural heat, Dehydration. - Condition is Stable. - Discharge Instructions: Dehydration, Adult, Heat Exhaustion Information, Rehydration, Adult. - Medication Reconciliation Form, Thank You Letter, Antibiotic Education, Prescription Opioid Use form. - Follow up: Emergency Department; When: As needed; Reason: Worsening of condition. Follow up: Private Physician; When: 2 - 3 days; Reason: Recheck today's complaints, Continuance of care, Re-evaluation by your physician. - Problem is new. - Symptoms have improved. Signatures: Dispatcher [employer] EDReuben Ward, STRUCTURAL STEEL WORKER HELPER STRUCTURAL STEEL WORKER HELPER pm1 Justus Huff, VICTORIANO RN jd3 Jorge Casas MD MD tw4 Melissa Connolly RN RN ca1 Corrections: (The following items were deleted from the chart) 01/12 21:03 21:02 01/13/2020 21:02 Discharged to Home. Impression: Dehydration. Condition is pm1 Stable. Forms are Medication Reconciliation Form, Thank You Letter, Antibiotic Education, Prescription Opioid Use. Follow up: Emergency Department; When: As needed; Reason: Worsening of condition. Follow up: Private Physician; When: 2 - 3 days; Reason: Recheck today's complaints, Continuance of care, Re-evaluation by your physician. Problem is new. Symptoms have improved. pm1 21:11 21:03 01/13/2020 21:02 Discharged to Home. Impression: Exposure to excessive natural jd3 heatDehydration. Condition is Stable. Discharge Instructions: Dehydration, Adult, Heat Exhaustion Information, Rehydration, Adult. Forms are Medication Reconciliation Form, Thank You Letter, Antibiotic Education, Prescription Opioid Use. Follow up: Emergency Department; When: As needed; Reason: Worsening of condition. Follow up: Private Physician; When: 2 - 3 days; Reason: Recheck today's complaints, Continuance of care, Re-evaluation by your physician. Problem is new. Symptoms have improved. pm1
--- NOTE | 2020-01-13 21:03 | ER ---
Nurse's Notes [facility] Name: Silke Dill Age: 64 yrs Sex: Female : 1955 Arrival Date: 01/13/2020 Time: 18:31 Bed 6 Private MD: Diagnosis: Dehydration;Exposure to excessive natural heat Presentation: 01/12 18:36 Chief complaint: Patient states: <30 minutes, I was waiting for my outside the [facility] truck. He was here. I felt like I was about to pass out, maybe from the heat. Still feels dizzy and lightheaded at this time, reports nausea. Coronavirus screen: Proceed with normal triage. Patient denies a cough. Patient denies shortness of breath or difficulty breathing. Patient denies measured and/or subjective temperature greater than 100.4F prior to today's visit. Patient denies travel on a cruise ship or to a country the [facility] currently lists as an affected area. Patient denies contact with known and/or suspected case of COVID-19. Ebola Screen: Patient negative for fever greater than or equal to 101.5 degrees Fahrenheit, and additional compatible Ebola Virus Disease symptoms Patient denies exposure to infectious person. Patient denies travel to an Ebola-affected area in the 21 days before illness onset. No symptoms or risks identified at this time. Initial Sepsis Screen: Does the patient meet any 2 criteria? No. Patient's initial sepsis screen is negative. Does the patient have a suspected source of infection? No. Patient's initial sepsis screen is negative. Risk Assessment: Do you want to hurt yourself or someone else? Patient reports no desire to harm self or others. Onset of symptoms was January 13, 2020. 18:36 Method Of Arrival: Wheelchair ca1 18:36 Acuity: RASHAAD 3 ca1 Historical: - Allergies: 18:40 PENICILLINS; ca1 - Home Meds: 18:40 Coumadin 5 mg Oral tab 1 tab on M,W,F, Sun and 1/2 tab of T,Th,Sat [Active]; ca1 - PMHx: 18:40 Diabetes - NIDDM; Hypertension; ca1 - PSHx: 18:40 aortic valve replacement; ; ca1 - Immunization history:: Adult Immunizations up to date. - Social history:: Smoking status: Patient denies any tobacco usage or history of. Screenin:47 Abuse screen: Denies threats or abuse. Nutritional screening: No deficits noted. jd3 Tuberculosis screening: No symptoms or risk factors identified. Fall Risk IV access (20 points). Ambulatory Aid- Crutches/Cane/Walker (15 pts). Gait- Weak (10 pts.). Mental Status- Oriented to own ability (0 pts). Total Carr Fall Scale indicates High Risk Score (45 or more points). Fall prevention measures have been instituted. Side Rails Up X 2 Placed Close to Nursing Station Frequent Obs/Assessments Occuring. Assessment: 19:44 General: Appears in no apparent distress. comfortable, Behavior is cooperative, jd3 appropriate for age, anxious. Pain: Denies pain. Neuro: Level of Consciousness is awake, alert, obeys commands, Oriented to person, place, time, situation, Reports dizziness. Cardiovascular: Denies chest pain, Capillary refill < 3 seconds Patient's skin is warm and dry. Rhythm is regular. Respiratory: Airway is patent Respiratory effort is even, unlabored, Respiratory pattern is regular, symmetrical, Denies cough, shortness of breath. GI: Abdomen is round non-distended, Reports nausea. : No signs and/or symptoms were reported regarding the genitourinary system. EENT: No signs and/or symptoms were reported regarding the EENT system. Derm: Skin is intact, Skin is dry, Skin is normal, Skin temperature is warm. Musculoskeletal: Circulation, motion, and sensation intact. Range of motion: intact in all extremities. 21:09 Reassessment: Patient appears in no apparent distress at this time. Patient and/or jd3 family updated on plan of care and expected duration. Pain level reassessed. Patient is alert, oriented x 3, equal unlabored respirations, skin warm/dry/pink. Patient states feeling better. Vital Signs: 18:36 BP 122 / 62; Pulse 69; Resp 19 S; Temp 98.3(O); Pulse Ox 100% on R/A; Weight 72.57 kg ca1 (R); Height 5 ft. 0 in. (152.40 cm) (R); 19:48 BP 178 / 53; Pulse 64; Resp 18 S; Pulse Ox 100% on R/A; jd3 20:52 BP 128 / 53; Pulse 68; Resp 17 S; Pulse Ox 97% on R/A; jd3 18:36 Body Mass Index 31.25 (72.57 kg, 152.40 cm) ca1 ED Course: 18:31 Patient arrived in ED. ag5 18:39 Triage completed. ca1 18:40 Arm band placed on right wrist. ca1 19:17 Reuben Caro NP is PHCP. pm1 19:17 Jorge Casas MD is Attending Physician. pm1 19:23 Justus Huff RN is Primary Nurse. jd3 19:33 Inserted saline lock: 20 gauge in left antecubital area, using aseptic technique. Blood jd3 collected. 19:48 Patient has correct armband on for positive identification. Placed in gown. Bed in low jd3 position. Call light in reach. Side rails up X 1. Pulse ox on. NIBP on. 21:09 No provider procedures requiring assistance completed. IV discontinued, intact, jd3 bleeding controlled, No redness/swelling at site. Pressure dressing applied. Administered Medications: 19:43 Drug: NS 0.9% 1000 ml Route: IV; Rate: 1000 ml; Site: left antecubital; jd3 20:40 Follow up: Response: No adverse reaction; IV Status: Completed infusion; IV Intake: jd3 1000ml 19:44 Drug: Zofran (Ondansetron) 4 mg Route: IVP; Site: left antecubital; jd3 20:40 Follow up: Response: No adverse reaction jd3 Intake: 20:40 IV: 1000ml; Total: 1000ml. jd3 Outcome: 21:02 Discharge ordered by . pm1 21:09 Discharged to home ambulatory, with family. jd3 21:09 Condition: stable 21:09 Discharge instructions given to patient, Instructed on discharge instructions, follow up and referral plans. Demonstrated understanding of instructions, follow-up care. 21:11 Patient left the ED. jd3 Signatures: Reuben Caro NP FOOD TASTER pm1 Justus Huff RN RN jMelissa Florentino RN RN ca1 Radha Hi ag5
[2020-01-13 21:37] VITALS: TEMP 98.3
[2020-01-13 21:40] VITALS: BP 128/53; O2SAT 97
== END 2020-01-13 21:11 | disposition home or self-care (01) ==
LOC: ER 18:27
DX: E86.0 Dehydration (principal); R11.0 Nausea; X30.XXXA Exposure to excessive natural heat, initial encounter; Y93.9 Activity, unspecified; Y92.9 Unspecified place or not applicable; I10 Essential (primary) hypertension; Z79.01 Long term (current) use of anticoagulants; Z88.0 Allergy status to penicillin
CPT/HCPCS: 96361; 85025; 80048; 36415; 82550; 82947; 80076; 83690; 96374; 99284; J7030; J2405

== ENCOUNTER 2020-02-09 13:54 | Emergency (ER) | payer OTHER ==
[2020-02-09] MEDS ORDERED: FENTANYL CITR 100 MCG/2 ML ONE (14:38)
[2020-02-09] MEDS ORDERED: ONDANSETRON 4 MG/2 ML VIAL ONE (14:38)
--- NOTE | 2020-02-09 14:52 | RAD REPORT ---
EXAM DESCRIPTION: RAD - Chest Single View - 02/09/2020 2:11 pm CLINICAL HISTORY: CHEST PAIN COMPARISON: Portable August 2019 TECHNIQUE: AP portable chest image was obtained 02/09/2020 2:11 pm . FINDINGS: Lungs are clear. Body habitus and prominent overlying soft tissues accentuate lung base ma rkings. Heart and vasculature are normal. No measurable pleural effusion and no pneumothorax. No acut e bony abnormality seen. No acute aortic findings suspected. IMPRESSION: No acute cardiopulmonary process. No significant interval change.
[2020-02-09 14:53] LABS: Protime INR 1.59
[2020-02-09 14:58] LABS: ALT/SGPT 18 U/L (12-78); AST/SGOT 35 U/L (15-37); Albumin 3.4 g/dL (3.4-5.0); Alkaline Phosphatase 59 U/L (45-117); BUN Blood Urea Nitrogen 24 mg/dL (7-18); Bicarbonate 28 mmol/L (21-32); Bilirubin Direct < 0.1 mg/dL (0-0.2); Bilirubin Total 0.2 mg/dL (0.2-1.0); Glucose Level 105 mg/dL (74-106); NT PRO-BNP 277 pg/mL (<125); Potassium 4.1 mmol/L (3.5-5.1); Protein, Total 8.5 g/dL (6.4-8.2); Sodium Level 141 mmol/L (136-145); Troponin (Emerg Dept Use Only) < 0.02 ng/mL (0.0-0.045)
[2020-02-09 15:20] LABS: Absolute Lymphocytes (CBC) 1.8 K/uL (0.7-4.9); Basophils % 0.5 % (0-1.3); Hematocrit 38.8 % (36.0-45.0); MPV 9.7 fL (7.6-11.3); RBC Red Blood Cell Count 4.42 M/uL (3.86-4.86)
[2020-02-09 17:28] LABS: Blood Morphology Comment NOT SEEN (NOT SEEN); Platelet Estimate ADEQ; Urine White Blood Cell Casts OK
--- NOTE | 2020-02-09 17:46 | RAD REPORT ---
EXAM DESCRIPTION: CT - Chest For Pe Angio - 02/09/2020 5:32 pm CLINICAL HISTORY: CHEST PAIN COMPARISON: Chest Single View dated 02/09/2020 TECHNIQUE: Dynamically enhanced 3 mm thick images of the chest were obtained during administration o f approximately 150mL Isovue 370 IV contrast. Coronal and oblique MIP reconstruction images were gene rated and reviewed. Exam utilizes a protocol to evaluate the pulmonary arterial tree. All CT scans are performed using dose optimization technique as appropriate and may include automated exposure control or mA/KV adjustment according to patient size. FINDINGS: No pulmonary emboli are identified. Motion degradation in the lung bases limits far periph eral pulmonary arterial tree assessment. No far peripheral branch embolic disease suspected. . The aorta as imaged shows no acute or suspicious finding. No pericardial thickening or effusion. Patient has scattered ground-glass opacification in the lung ford more peripheral than central in d istribution. No one area of dense consolidation or mass. No pneumothorax. No pleural effusion or pleu ral based mass. No mediastinal or hilar suspicious masses. No chest wall masses or abnormal axillary lymphadenopathy. IMPRESSION: No pulmonary emboli identified. Bilateral ground-glass opacification pattern in the lung ford.This pattern has been well described in COVID-19 pneumonia patients. Correlation is needed with clinical presentation and any COVID-19 carin ting results. The lung parenchymal pattern can be seen as well with non COVID pneumonia or alveolitis. Scattered al veolar edema would be possible as well.
[2020-02-09] MEDS ORDERED: dexAMETHasone 10 MG/ML VIAL ONE (19:05)
--- NOTE | 2020-02-09 19:06 | ER ---
Nurse's Notes [facility] Name: Silke Dill Age: 64 yrs Sex: Female : 1955 Arrival Date: 02/09/2020 Time: 13:54 Bed 19 Private MD: Diagnosis: Viral Respiratory Infection;Dizziness Presentation: 02/08 14:15 Chief complaint: Patient states: chest pain that started last night, /10. Middle chest/epigastric area that is constant. Coronavirus screen: Client denies travel out of the [place] in the last 14 days. daughter was dx with covid 2 weeks ago. Ebola Screen: No symptoms or risks identified at this time. Initial Sepsis Screen: Does the patient meet any 2 criteria? No. Patient's initial sepsis screen is negative. Does the patient have a suspected source of infection? No. Patient's initial sepsis screen is negative. Risk Assessment: Do you want to hurt yourself or someone else? Patient reports no desire to harm self or others. Onset of symptoms was February 08, 2020. 14:15 Method Of Arrival: Ambulatory 14:15 Acuity: RASHAAD 3 Historical: - Allergies: 14:22 PENICILLINS; - Home Meds: 14:22 Coumadin 5 mg Oral tab 1 tab on M,W,F, Sun and 1/2 tab of T,Th,Sat [Active]; valsartan-hydrochlorothiazide 80-12.5 mg Oral tab 1 tab once daily [Active]; - PMHx: 14:22 Diabetes - NIDDM; Hypertension; - PSHx: 14:22 open heart surgery; ; - Immunization history:: Adult Immunizations unknown. - Social history:: Smoking status: Patient denies any tobacco usage or history of. Screenin:24 Abuse screen: Denies threats or abuse. Nutritional screening: No deficits noted. Tuberculosis screening: No symptoms or risk factors identified. Fall Risk None identified. Assessment: 14:22 General: Appears uncomfortable, Behavior is cooperative, anxious. Pain: Complains of pain in xyphoid area and mid-sternal area Pain does not radiate. Pain currently is 7 out of 10 on a pain scale. Quality of pain is described as Pain began 1 day ago. Neuro: Level of Consciousness is awake, alert, obeys commands, Oriented to person, place, time, situation, Appropriate for age. Cardiovascular: Capillary refill < 3 seconds Patient's skin is warm and dry. Cardiovascular: Reports chest pain, Rhythm is regular. Respiratory: Reports shortness of breath Airway is patent Respiratory effort is even, unlabored, Respiratory pattern is regular, symmetrical. Derm: Skin is intact, is healthy with good turgor, Skin is dry. 15:28 Reassessment: Patient and/or family updated on plan of care and expected duration. Pain ah level reassessed. Patient is alert, oriented x 3, equal unlabored respirations, skin warm/dry/pink. awaiting lab results. Pt just returned from restroom with assist x1 staff. Tolerated well. 18:00 Reassessment: Patient and/or family updated on plan of care and expected duration. Pain ah level reassessed. Patient is alert, oriented x 3, equal unlabored respirations, skin warm/dry/pink. troponin repeated at this time. Pt states that her pain is better. No needs voiced. 19:15 Reassessment: Discharge instructions given at this time. Pt voiced understanding. Vital Signs: 14:00 BP 144 / 74; Pulse 67; Resp 18; Pulse Ox 99% on R/A; ks7 14:15 BP 144 / 74; Pulse 66; Resp 19; Temp 98.6; Pulse Ox 98% ; Weight 72.57 kg; Height 4 ft. ah 11 in. (149.86 cm); Pain 7/10; 15:30 BP 117 / 90; Pulse 53; Resp 18; Pulse Ox 97% on R/A; ks7 16:00 BP 116 / 87; Pulse 53; Resp 18; Pulse Ox 97% on R/A; ks7 17:00 BP 158 / 79; Pulse 53; Resp 18; Pulse Ox 94% on R/A; ks7 17:45 BP 132 / 48; Pulse 58; Resp 18; Temp 98(O); Pulse Ox 97% ; Pain 0/10; ks7 19:17 BP 150 / 57; Pulse 61; Resp 18; Pulse Ox 94% ; ah 14:15 Body Mass Index 32.32 (72.57 kg, 149.86 cm) ED Course: 13:54 Patient arrived in ED. ag5 13:56 Jesus Cruz PA is PHCP. jr8 13:56 Raul Kilgore MD is Attending Physician. jr 14:11 Tracie Ennis, RN is Primary Nurse. 14:21 Triage completed. 14:24 EKG done, by ED staff. 14:24 Patient maintains SpO2 saturation greater than 95% on room air. ah 14:24 Patient has correct armband on for positive identification. Placed in gown. Bed in low ah position. Call light in reach. awake overnight monitor on. Pulse ox on. NIBP on. 14:25 Initial lab(s) drawn, by ED staff, sent to lab. Inserted saline lock: 20 gauge in left ah hand, using aseptic technique. Blood collected. [facility] by Jesus Cruz PA ashutosh 17:53 Jordan Dhillon PA is PHCP. [facility] 18:03 Inserted saline lock: 22 gauge in left antecubital area, using aseptic technique. [facility] 18:14 Troponin (emerg Dept Use Only) Sent. 19:06 COVID-19 Sent. 19:16 No provider procedures requiring assistance completed. IV discontinued, intact, ah bleeding controlled, No redness/swelling at site. Pressure dressing applied. Administered Medications: 14:50 Drug: fentaNYL (PF) 50 mcg Route: IVP; Site: left wrist; 18:14 Follow up: Response: No adverse reaction 19:12 Follow up: Response: No adverse reaction 14:50 Drug: Zofran (Ondansetron) 4 mg Route: IVP; Site: left wrist; 18:14 Follow up: Response: No adverse reaction 19:11 Follow up: Response: No adverse reaction 18:40 Drug: Decadron - Dexamethasone 10 mg Route: IVP; Site: left antecubital; 19:12 Follow up: Response: No adverse reaction Outcome: 19:06 Discharge ordered by . [facility] 19:16 Discharged to home via wheelchair. 19:16 Condition: good 19:16 Discharge instructions given to patient, Instructed on discharge instructions, follow up and referral plans. Demonstrated understanding of instructions, follow-up care, medications, Prescriptions given X 1. 19:17 Patient left the ED. Addendum: 02/13/2020 12:00 Addendum: COVID-19 Result: Positive result giiven to ED physician to notify pt. i w Physician: Sloitario Blair MD Physician attempted to contact pt. Other: unable to leave voice mail, no voice mail set up. Signatures: Jordan Dhillon PA PA jmm Williams, Irene, RN RN iw Roszak, Josh, PA PA jr8 Radha Hi ag5 Tracie Ennis RN RN Kaitlin Hadley RN RN ks7 Corrections: (The following items were deleted from the chart) 02/08 17:57 17:53 BP 132 / 48; Pulse 58bpm; Resp 18bpm; Pulse Ox 97%; Temp 98F Oral; Pain 0/10; ks7 ks7
--- NOTE | 2020-02-09 19:06 | EDPHYS ---
Physician Documentation [facility] Name: Silke Dill Age: 64 yrs Sex: Female : 1955 Arrival Date: 02/09/2020 Time: 13:54 Bed 19 Private MD: ED Physician Raul Kilgore HPI: 02/08 14:45 This 64 yrs old Female presents to ER via Ambulatory with complaints of Chest jr8 Pain. 14:45 The patient or guardian reports chest pain that is located primarily in the substernal jr8 area. Onset: acutely, last night. The pain does not radiate. Associated signs and symptoms: Pertinent positives: None. The chest pain is described as a heaviness. Duration: The patient or guardian reports a single episode, that is still ongoing. Modifying factors: The symptoms are alleviated by nothing. the symptoms are aggravated by nothing. Severity of pain: At its worst the pain was moderate in the emergency department the pain is unchanged. The patient has not experienced similar symptoms in the past. The patient has not recently seen a physician. Historical: - Allergies: 14:22 PENICILLINS; - Home Meds: 14:22 Coumadin 5 mg Oral tab 1 tab on M,W,F, Sun and 1/2 tab of T,Th,Sat [Active]; valsartan-hydrochlorothiazide 80-12.5 mg Oral tab 1 tab once daily [Active]; - PMHx: 14:22 Diabetes - NIDDM; Hypertension; - PSHx: 14:22 open heart surgery; ; - Immunization history:: Adult Immunizations unknown. - Social history:: Smoking status: Patient denies any tobacco usage or history of. ROS: 14:45 Eyes: Negative for injury, pain, redness, and discharge, ENT: Negative for injury, jr8 pain, and discharge, Neck: Negative for injury, pain, and swelling, Respiratory: Negative for shortness of breath, cough, wheezing, and pleuritic chest pain, Abdomen/GI: Negative for abdominal pain, nausea, vomiting, diarrhea, and constipation, Back: Negative for injury and pain, MS/Extremity: Negative for injury and deformity, Skin: Negative for injury, rash, and discoloration, Neuro: Negative for headache, weakness, numbness, tingling, and seizure. 14:45 Cardiovascular: Positive for chest pain, Negative for edema, orthopnea, palpitations, paroxysmal nocturnal dyspnea. Exam: 14:45 Eyes: Pupils equal round and reactive to light, extra-ocular motions intact. Lids and jr8 lashes normal. Conjunctiva and sclera are non-icteric and not injected. Cornea within normal limits. Periorbital areas with no swelling, redness, or edema. ENT: Nares patent. No nasal discharge, no septal abnormalities noted. Tympanic membranes are normal and external auditory canals are clear. Oropharynx with no redness, swelling, or masses, exudates, or evidence of obstruction, uvula midline. Mucous membranes moist. Neck: Trachea midline, no thyromegaly or masses palpated, and no cervical lymphadenopathy. Supple, full range of motion without nuchal rigidity, or vertebral point tenderness. No Meningismus. Cardiovascular: Regular rate and rhythm with a normal S1 and S2. No gallops, murmurs, or rubs. Normal PMI, no JVD. No pulse deficits. Respiratory: Lungs have equal breath sounds bilaterally, clear to auscultation and percussion. No rales, rhonchi or wheezes noted. No increased work of breathing, no retractions or nasal flaring. Abdomen/GI: Soft, non-tender, with normal bowel sounds. No distension or tympany. No guarding or rebound. No evidence of tenderness throughout. Back: No spinal tenderness. No costovertebral tenderness. Full range of motion. Skin: Warm, dry with normal turgor. Normal color with no rashes, no lesions, and no evidence of cellulitis. MS/ Extremity: Pulses equal, no cyanosis. Neurovascular intact. Full, normal range of motion. Neuro: Awake and alert, GCS 15, oriented to person, place, time, and situation. Cranial nerves II-XII grossly intact. Motor strength 5/5 in all extremities. Sensory grossly intact. Cerebellar exam normal. Normal gait. Vital Signs: 14:00 BP 144 / 74; Pulse 67; Resp 18; Pulse Ox 99% on R/A; ks7 14:15 BP 144 / 74; Pulse 66; Resp 19; Temp 98.6; Pulse Ox 98% ; Weight 72.57 kg; Height 4 ft. ah 11 in. (149.86 cm); Pain 7/10; 15:30 BP 117 / 90; Pulse 53; Resp 18; Pulse Ox 97% on R/A; ks7 16:00 BP 116 / 87; Pulse 53; Resp 18; Pulse Ox 97% on R/A; ks7 17:00 BP 158 / 79; Pulse 53; Resp 18; Pulse Ox 94% on R/A; ks7 17:45 BP 132 / 48; Pulse 58; Resp 18; Temp 98(O); Pulse Ox 97% ; Pain 0/10; ks7 19:17 BP 150 / 57; Pulse 61; Resp 18; Pulse Ox 94% ; ah 14:15 Body Mass Index 32.32 (72.57 kg, 149.86 cm) ah MDM: 13:56 Patient medically screened. [facility] 18:43 Data reviewed: vital signs, nurses notes. Counseling: I had a detailed discussion with [facility] the patient and/or guardian regarding: the historical points, exam findings, and any diagnostic results supporting the discharge/admit diagnosis, lab results, radiology results, the need for outpatient follow up, to return to the emergency department if symptoms worsen or persist or if there are any questions or concerns that arise at home. 18:43 Data reviewed: lab test result(s), radiologic studies. [facility] 19:02 ED course: I discussed the CT findings with the patient along with the need for further [facility] evaluation. During this discussion, the patient also had a concern about her ongoing dizziness for the past year. Patient states she has an appt scheduled for further evaluation. Patient states she has tried OTC medication with no relief. Patient was previously diagnosed with BPPV. I do not suspect an acutely threatening process. . 02/08 13:56 Order name: Basic Metabolic Panel [facility] 02/08 13:56 Order name: CBC with Diff 02/08 13:56 Order name: LFT's 02/08 13:56 Order name: Magnesium [facility] 02/08 13:56 Order name: NT PRO-BNP [facility] 02/08 13:56 Order name: PT-INR 02/08 13:56 Order name: Troponin (emerg Dept Use Only) [facility] 02/08 14:58 Order name: Basic Metabolic Panel; Complete Time: 15:01 EDOK 02/08 14:58 Order name: Liver (Hepatic) Function; Complete Time: 15:01 EDOK 02/08 14:58 Order name: Troponin (Emerg Dept Use Only); Complete Time: 15:01 EDMS 02/08 14:58 Order name: NT PRO-BNP; Complete Time: 15:01 EDMS 02/08 14:58 Order name: Magnesium; Complete Time: 15:01 EDMS 02/08 15:15 Order name: Protime (+INR); Complete Time: 15:35 EDMS 02/08 15:29 Order name: CBC with Automated Diff; Complete Time: 17:34 EDMS 02/08 13:56 Order name: XRAY Chest (1 view) [facility] 02/08 13:56 Order name: EKG; Complete Time: 13:57 [facility] 02/08 13:56 Order name: Cardiac monitoring; Complete Time: 14:54 [facility] 02/08 13:56 Order name: EKG - Nurse/Tech; Complete Time: 14:54 [facility] 02/08 13:56 Order name: IV Saline Lock; Complete Time: 14:54 [facility] 02/08 13:56 Order name: Labs collected and sent; Complete Time: 14:54 [facility] 02/08 14:52 Order name: RAD; Complete Time: 15:01 EDMS 02/08 15:56 Order name: CT Chest For PE Angio [facility] 02/08 17:29 Order name: CBC Smear Scan; Complete Time: 17:34 EDMS 02/08 17:47 Order name: CT; Complete Time: 17:49 EDMS 02/08 17:48 Order name: Troponin (emerg Dept Use Only) [facility] 02/08 18:35 Order name: Troponin (Emerg Dept Use Only); Complete Time: 18:42 EDMS 02/08 18:45 Order name: COVID-19 [facility] 02/08 13:56 Order name: O2 Per Protocol; Complete Time: 14:54 [facility] 02/08 13:56 Order name: O2 Sat Monitoring; Complete Time: 14:54 jr Administered Medications: 14:50 Drug: fentaNYL (PF) 50 mcg Route: IVP; Site: left wrist; ah 18:14 Follow up: Response: No adverse reaction ah 19:12 Follow up: Response: No adverse reaction ah 14:50 Drug: Zofran (Ondansetron) 4 mg Route: IVP; Site: left wrist; ah 18:14 Follow up: Response: No adverse reaction ah 19:11 Follow up: Response: No adverse reaction ah 18:40 Drug: Decadron - Dexamethasone 10 mg Route: IVP; Site: left antecubital; 19:12 Follow up: Response: No adverse reaction Disposition: 02/09 07:03 Co-signature as Attending Physician, Raul Kilgore MD. rn Disposition: 02/09/20 19:06 Discharged to Home. Impression: Viral Respiratory Infection, Dizziness. - Condition is Stable. - Discharge Instructions: Dizziness, [facility]iana [facility] Self-Care, COVID-19. - Prescriptions for Meclizine 25 mg Oral Tablet - take 1 tablet by ORAL route every 8 hours As needed; 30 tablet. - Medication Reconciliation Form, Thank You Letter, Antibiotic Education, Prescription Opioid Use form. - Follow up: Private Physician; When: 2 - 3 days; Reason: Recheck today's complaints, Continuance of care, Re-evaluation by your physician. Signatures: Dispatcher [employer] EDMS Jordan Dhillon PA PA jmm Nieto, Roman, MD MD rn Roszak, Josh, PA PA jr8 Tracie Ennis RN RN Corrections: (The following items were deleted from the chart) 02/08 19:17 19:06 02/09/2020 19:06 Discharged to Home. Impression: Viral Respiratory Infection; Dizziness. Condition is Stable. Forms are Medication Reconciliation Form, Thank You Letter, Antibiotic Education, Prescription Opioid Use. Follow up: Private Physician; When: 2 - 3 days; Reason: Recheck today's complaints, Continuance of care, Re-evaluation by your physician. dot
[2020-02-09 19:54] VITALS: TEMP 98
[2020-02-09 19:56] VITALS: BP 150/57; O2SAT 94
--- NOTE | 2020-02-10 07:50 | EKG ---
Test Date: 2020-02-09 Test Time: 14:03:07 Ceramic Engineer: AAMIR MEASUREMENT RESULTS: Intervals: Rate: 61 DC: 196 QRSD: 78 QT: 420 QTc: 422 [place]: P: 73 DC: 196 QRS: 34 T: 61 INTERPRETIVE STATEMENTS: Normal sinus rhythm Nonspecific ST abnormality Abnormal ECG Compared to ECG 01/13/2020 18:48:08 ST (T wave) deviation now present Electronically Signed On 02-10-20 07:49:03 CDT by Glenn Tejeda
== END 2020-02-09 19:17 | disposition home or self-care (01) ==
LOC: ER 13:54
DX: U07.1 COVID-19 (principal); J22 Unspecified acute lower respiratory infection; R42 Dizziness and giddiness; I10 Essential (primary) hypertension; E11.9 Type 2 diabetes mellitus without complications; Z79.01 Long term (current) use of anticoagulants; Z88.0 Allergy status to penicillin
CPT/HCPCS: 93005 ×2; 85025; 80048; 36415; 83735; 85610; 80076; 84484 ×2; 83880; 71275; 71045; 99285; U0002; Q9967; J3010; J1100; J2405

== ENCOUNTER 2020-06-08 12:56 | Emergency (ER) | payer OTHER ==
[2020-06-08] MEDS ORDERED: ALBUTEROL INHALER 60 PUFF/8 GM IH ONE (15:19)
--- NOTE | 2020-06-08 16:07 | ER ---
Nurse's Notes [facility] Name: Silke Dill Age: 64 yrs Sex: Female : 1955 Arrival Date: 06/08/2020 Time: 12:58 Bed 7 Private MD: Diagnosis: Acute bronchitis, unspecified Presentation: 06/08 13:35 Chief complaint: Patient states: I've been real sick for 3 - 4 days. Coughing real bad, ca1 my lungs hurt when I cough. I only had fever 1 day, about 2 days ago. Denies congestion, N/V/D, sorethroat. Coronavirus screen: Client denies travel out of the [place] in the last 14 days. cough unrelated to allergies, fever, Client presents with at least one sign or symptom that may indicate coronavirus-19. Standard/surgical mask placed on the client. Provider contacted for isolation considerations. The client reports previous COVID testing was negative. Date of collection: March 2020. Ebola Screen: Patient negative for fever greater than or equal to 101.5 degrees Fahrenheit, and additional compatible Ebola Virus Disease symptoms Patient denies exposure to infectious person. Patient denies travel to an Ebola-affected area in the 21 days before illness onset. No symptoms or risks identified at this time. Initial Sepsis Screen: Does the patient meet any 2 criteria? No. Patient's initial sepsis screen is negative. Does the patient have a suspected source of infection? No. Patient's initial sepsis screen is negative. Risk Assessment: Do you want to hurt yourself or someone else? Patient reports no desire to harm self or others. Onset of symptoms was June 08, 2020. 13:35 Method Of Arrival: Wheelchair ca1 13:35 Acuity: RASHAAD 3 ca1 Historical: - Allergies: 13:39 PENICILLINS; ca1 - Home Meds: 13:39 Coumadin 5 mg Oral tab 1 tab on M,W,F, Sun and 1/2 tab of T,Th,Sat [Active]; ca1 - PMHx: 13:39 Diabetes - NIDDM; Hypertension; Vertigo; ca1 - PSHx: 13:39 open heart surgery; ; ca1 - Immunization history:: Adult Immunizations up to date, Flu vaccine is not up to date. - Social history:: Smoking status: Patient/guardian denies using tobacco, the patient reports quitting approximately 11 years ago. Screenin:01 Abuse screen: Denies threats or abuse. Denies injuries from another. Nutritional sv screening: No deficits noted. Tuberculosis screening: No symptoms or risk factors identified. Fall Risk None identified. Assessment: 15:00 General: Appears in no apparent distress. comfortable, well developed, Behavior is sv calm, cooperative, appropriate for age. General: Reports fever for 1-2 days. Pain: Complains of pain in chest Pain currently is 6 out of 10 on a pain scale. Pain began 2-3 days ago. Is intermittent, episodic, Aggravated by coughing. Neuro: Level of Consciousness is awake, alert, obeys commands, Oriented to person, place, time, situation, Moves all extremities. Full function Gait is steady. Cardiovascular: Patient's skin is warm and dry. Respiratory: Reports cough that is non-productive, Airway is patent Respiratory effort is even, unlabored, Respiratory pattern is regular, symmetrical. GI: Patient currently denies diarrhea, nausea, vomiting. EENT: Denies pain when swallowing. Derm: Skin is pink, warm \T\ dry. 16:31 Reassessment: Patient appears in no apparent distress at this time. No changes from previously documented assessment. Patient and/or family updated on plan of care and expected duration. Pain level reassessed. Patient is alert, oriented x 3, equal unlabored respirations, skin warm/dry/pink. Vital Signs: 13:35 BP 147 / 61; Pulse 65; Resp 18 S; Temp 98.2(O); Pulse Ox 100% on R/A; Height 5 ft. 0 ca1 in. (152.40 cm) (R); Pain 6/10; ED Course: 12:58 Patient arrived in ED. as 13:38 Triage completed. ca1 13:39 Arm band placed on right wrist. ca1 14:48 Michelle Alberto RN is Primary Nurse. sv 14:49 Reuben Caro NP is PHCP. pm1 14:49 Raul Kilgore MD is Attending Physician. pm1 14:49 Jose A Alejandro PA is PHCP. cp 15:01 Patient has correct armband on for positive identification. Bed in low position. Call sv light in reach. Adult w/ patient. Door closed. Head of bed elevated. 15:17 COVID swab sent to lab. Flu and/or RSV swab sent to lab. Strep swab sent to lab. sv 15:50 XRAY Chest (1 view) In Process Unspecified. EDMS 15:50 COVID-19 Sent. ss 15:50 Influenza Screen (a \T\ B) Sent. ss 15:50 Strep Sent. ss 16:00 Throat Culture Sent. sv 16:31 No provider procedures requiring assistance completed. Patient did not have IV access sv during this emergency room visit. Administered Medications: 15:17 Drug: Albuterol HFA Inhaler 2 puffs Route: Inhalation; sv Outcome: 16:06 Discharge ordered by MD. cp 16:31 Discharged to home via wheelchair, with family. sv 16:31 Condition: stable 16:31 Discharge instructions given to patient, family, Instructed on discharge instructions, follow up and referral plans. medication usage, Demonstrated understanding of instructions, follow-up care, medications, Prescriptions given X 3. 16:31 Patient left the ED. sv Addendum: 06/10/2020 17:49 Addendum: COVID-19 Result: Negative result given to RN to notify pt. Attempted to a a5 contact pt regarding negative COVID-19 swab results. Left voice mail. 06/13/2020 10:38 Addendum: COVID-19 Result: Negative result given to RN to notify pt. Notified pt of i w negative COVID 19 swab results. Pt advised that even with a negative test result they should remain in isolation until symptom free for 3 days without medication. Pt also advised to return to the ED for worsening symptoms. Signatures: Dispatcher [employer] [facility] Michelle Alberto RN RN sv Martinez, Amelia as Williams, Irene, RN RN iw Calderon, Audri, RN RN aa5 Aby Faust RN RN ss Page, Corey, PA PA cp Reuben Caro, MACHINE CUTTER MACHINE CUTTER pm1 Melissa Connolly RN RN ca1
--- NOTE | 2020-06-08 16:07 | EDPHYS ---
Physician Documentation [facility] Name: Silke Dill Age: 64 yrs Sex: Female : 1955 Arrival Date: 06/08/2020 Time: 12:58 Bed 7 Private MD: ED Physician Raul Kilgore HPI: 06/08 15:05 This 64 yrs old Female presents to ER via Wheelchair with complaints of cp Cough, Congestion, Fever. 15:05 The patient or guardian reports cough, that is intermittent. Onset: The cp symptoms/episode began/occurred 4 day(s) ago. Associated signs and symptoms: Pertinent positives: fever, congestion, Pertinent negatives: chest pain, diarrhea, vomiting. Historical: - Allergies: 13:39 PENICILLINS; ca1 - Home Meds: 13:39 Coumadin 5 mg Oral tab 1 tab on M,W,F, Sun and 1/2 tab of T,Th,Sat [Active]; ca1 - PMHx: 13:39 Diabetes - NIDDM; Hypertension; Vertigo; ca1 - PSHx: 13:39 open heart surgery; ; ca1 - Immunization history:: Adult Immunizations up to date, Flu vaccine is not up to date. - Social history:: Smoking status: Patient/guardian denies using tobacco, the patient reports quitting approximately 11 years ago. ROS: 15:15 Constitutional: Negative for body aches, chills, fever, poor PO intake. cp 15:15 Eyes: Negative for injury, pain, redness, and discharge. cp 15:15 ENT: Negative for drainage from ear(s), ear pain, difficulty swallowing, difficulty handling secretions. 15:15 Cardiovascular: Negative for chest pain. 15:15 Respiratory: Positive for cough, "sounds productive", Negative for wheezing. 15:15 Abdomen/GI: Negative for abdominal pain, nausea, vomiting, and diarrhea. 15:15 Skin: Negative for rash. 15:15 Neuro: Negative for altered mental status, headache. 15:15 All other systems are negative. Exam: 15:18 Constitutional: The patient appears in no acute distress, alert, awake, non-toxic, well cp developed, well nourished. 15:18 Head/Face: Normocephalic, atraumatic. cp 15:18 Eyes: Periorbital structures: appear normal, Conjunctiva: normal, no exudate, no injection, Sclera: no appreciated abnormality, Lids and lashes: appear normal, bilaterally. 15:18 ENT: External ear(s): are unremarkable, Ear canal(s): are normal, clear, TM's: bulging, is not appreciated, bilaterally, dullness, bilaterally, erythema, is not appreciated, bilaterally, Nose: is normal, Mouth: Lips: moist, Oral mucosa: moist, Posterior pharynx: Airway: no evidence of obstruction, patent, erythema, that is mild, exudate, is not appreciated. 15:18 Neck: ROM/movement: is normal, is supple, no meningismus, no nuchal rigidity, Lymph nodes: no appreciated lymphadenopathy. 15:18 Chest/axilla: Inspection: normal, Palpation: is normal, no crepitus, no tenderness. 15:18 Cardiovascular: Rate: normal, Rhythm: regular. 15:18 Respiratory: the patient does not display signs of respiratory distress, Respirations: normal, no use of accessory muscles, no retractions, labored breathing, is not present, Breath sounds: bronchial sounds, that are mild, are heard diffusely, decreased breath sounds, are not appreciated, stridor, is not appreciated, + upper airway congestion. wheezing: is not appreciated. 15:18 Abdomen/GI: Exam negative for discomfort, distension, guarding, Inspection: abdomen appears normal. Vital Signs: 13:35 BP 147 / 61; Pulse 65; Resp 18 S; Temp 98.2(O); Pulse Ox 100% on R/A; Height 5 ft. 0 ca1 in. (152.40 cm) (R); Pain 6/10; MDM: 14:53 Patient medically screened. cp 16:00 Differential Diagnosis: Bronchitis Influenza Upper Respiratory Infection Viral Syndrome cp Pneumonia. 16:05 Data reviewed: vital signs, nurses notes, lab test result(s), radiologic studies, plain cp films. 16:05 Test interpretation: by ED physician or midlevel provider: chest xray negative for cp infiltrates. Counseling: I had a detailed discussion with the patient and/or guardian regarding: the historical points, exam findings, and any diagnostic results supporting the discharge/admit diagnosis, lab results, radiology results, to return to the emergency department if symptoms worsen or persist or if there are any questions or concerns that arise at home. ED course: VSS. Patient appears non-toxic and no signs of respiratory distress. Will discharge to home for continued monitoring. 06/08 15:02 Order name: COVID-19 06/08 15:02 Order name: Influenza Screen (a \\T\\ B); Complete Time: 16:21 06/08 16:21 Interpretation: Reviewed. 06/08 15:02 Order name: Strep; Complete Time: 16:21 06/08 16:22 Interpretation: Reviewed. 06/08 15:02 Order name: XRAY Chest (1 view); Complete Time: 16:21 06/08 16:22 Interpretation: Report reviewed. 06/08 15:59 Order name: Throat Culture EDMS Administered Medications: 15:17 Drug: Albuterol HFA Inhaler 2 puffs Route: Inhalation; sv Disposition: 06/09 09:32 Co-signature as Attending Physician, Raul Kilgore MD. rn Disposition: 06/08/20 16:06 Discharged to Home. Impression: Acute bronchitis, unspecified. - Condition is Stable. - Discharge Instructions: Acute Bronchitis, Adult. - Prescriptions for Tessalon Perles 100 mg Oral Capsule - take 2 capsule by ORAL route every 8 hours As needed; 30 capsule. Zithromax Z- Eduardo 250 mg Oral Tablet - take 1 tablet by ORAL route as directed for 5 days Day 1 - take two (2) tablets one time. Day 2, 3, 4 , 5 take one (1) tablet once daily.; 6 tablet. Albuterol Sulfate 90 mcg/actuation - inhale 1-2 puff by INHALATION route every 4-6 hours; 1 Inhaler. - Medication Reconciliation Form, Thank You Letter, Antibiotic Education, Prescription Opioid Use form. - Follow up: Private Physician; When: 2 - 3 days; Reason: Recheck today's complaints. - Problem is new. - Symptoms have improved. Signatures: Dispatcher [employer] EDMichelle Mcknight RN RN sv Nieto, Roman, MD MD rn Page, Corey, PA PA cp Acob, Cheryl, RN RN ca1 Corrections: (The following items were deleted from the chart) 06/08 16:31 16:06 06/08/2020 16:06 Discharged to Home. Impression: Acute bronchitis, unspecified. sv Condition is Stable. Forms are Medication Reconciliation Form, Thank You Letter, Antibiotic Education, Prescription Opioid Use. Follow up: Private Physician; When: 2 - 3 days; Reason: Recheck today's complaints. Problem is new. Symptoms have improved. cp
--- NOTE | 2020-06-08 16:13 | RAD REPORT ---
EXAM DESCRIPTION: RAD - Chest Single View - 06/08/2020 3:49 pm CLINICAL HISTORY: COUGH Chest pain. COMPARISON: <Comparisons> FINDINGS: Portable technique limits examination quality. The lungs are grossly clear. The heart is normal in size. No displaced fractures.Sternotomy wires. IMPRESSION: No acute intrathoracic process suspected.
[2020-06-12 11:22] VITALS: BP 147/61; TEMP 98.2; O2SAT 100
== END 2020-06-08 16:31 | disposition home or self-care (01) ==
LOC: ER 12:56
DX: J20.9 Acute bronchitis, unspecified (principal); Z20.828 Contact with and (suspected) exposure to other viral communicable diseases; I10 Essential (primary) hypertension; E11.9 Type 2 diabetes mellitus without complications; Z79.01 Long term (current) use of anticoagulants; Z88.0 Allergy status to penicillin
CPT/HCPCS: 87070; 87081; 87804 ×2; 71045; U0002; 99284

== ENCOUNTER 2021-05-03 17:21 | Emergency (ER) | payer OTHER ==
[2021-05-03 18:29] LABS: Protime INR 1.5
[2021-05-03 18:30] LABS: Absolute Lymphocytes (CBC) 1.6 K/uL (0.7-4.9); Basophils % 0.7 % (0-1.3); Hematocrit 36.5 % (36.0-45.0); Lymphocytes % 18.4 % (15.3-44.8); MPV 8.3 fL (7.6-11.3); RBC Red Blood Cell Count 4.15 M/uL (3.86-4.86)
[2021-05-03 18:36] LABS: Potassium 3.6 mmol/L (3.5-5.1)
--- NOTE | 2021-05-03 19:16 | EDPHYS ---
Physician Documentation [facility] Name: Silke Dill Age: 65 yrs Sex: Female : 1955 Arrival Date: 05/03/2021 Time: 17:24 Bed 2 Private MD: ED Physician Solitario Blair HPI: 05/03 18:20 This 65 yrs old Female presents to ER via Unassigned with complaints of cp Medication Refill. 18:20 The patient presents to the emergency department requesting refill(s) for: Wafarin. cp 18:20 Patient reports taking 5 mg Warfarin daily for history of heart valve replacement and cp reports taking last dose 2 days ago. Patient reports she lives in [facility] but does not have a local physician. No complaints expressed.. Historical: - Allergies: 17:56 PENICILLINS; aa5 - PMHx: 17:56 Diabetes - NIDDM; Hypertension; Vertigo; aa5 - Immunization history:: Adult Immunizations unknown. - Social history:: Smoking status: unknown. ROS: 18:25 All other systems are negative. cp Exam: 18:30 Constitutional: The patient appears in no acute distress, alert, awake, non-toxic, well cp developed, well nourished. 18:30 Head/Face: Normocephalic, atraumatic. cp 18:30 Eyes: Periorbital structures: appear normal, Conjunctiva: normal, no exudate, no injection, Sclera: no appreciated abnormality, Lids and lashes: appear normal, bilaterally. 18:30 ENT: External ear(s): are unremarkable, Nose: is normal, Mouth: Lips: moist, Oral mucosa: moist, Posterior pharynx: Airway: no evidence of obstruction, patent. 18:30 Chest/axilla: Inspection: mid line surgical scar, Palpation: is normal, no crepitus, no tenderness. 18:30 Cardiovascular: Rate: normal, Rhythm: regular, Edema: is not appreciated, JVD: is not appreciated. 18:30 Respiratory: the patient does not display signs of respiratory distress, Respirations: normal, no use of accessory muscles, no retractions, labored breathing, is not present, Breath sounds: are clear throughout, no decreased breath sounds, no stridor, no wheezing. 18:30 Abdomen/GI: Exam negative for discomfort, distension, guarding, Inspection: abdomen appears normal. 18:30 Back: pain, is absent, ROM is normal. 18:30 Neuro: Orientation: to person, place \T\ time. Mentation: is normal. Vital Signs: 18:00 BP 127 / 76; Pulse 77; Resp 16; Temp 97.9; Pulse Ox 100% ; bp MDM: 17:54 Patient medically screened. cp 19:15 Data reviewed: vital signs, nurses notes, lab test result(s), and as a result, I will cp discharge patient. 19:15 Counseling: I had a detailed discussion with the patient and/or guardian regarding: the cp historical points, exam findings, and any diagnostic results supporting the discharge/admit diagnosis, lab results, the need for outpatient follow up, a family practitioner, to return to the emergency department if symptoms worsen or persist or if there are any questions or concerns that arise at home. 05/03 18:03 Order name: PT-INR; Complete Time: 18:48 cp 05/03 18:48 Interpretation: Normal except: PT 17.3. cp 05/03 18:03 Order name: CBC with Diff; Complete Time: 18:48 cp 05/03 18:03 Order name: BMP; Complete Time: 18:48 cp Administered Medications: 19:33 Drug: Warfarin 7.5 mg Route: PO; bs2 Disposition: 19:20 Chart complete. cp 05/04 06:34 Co-signature as Attending Physician, Solitario Blair MD I agree with the assessment and kdr plan of care. Disposition Summary: 05/03/21 19:16 Discharge Ordered Location: Home cp Problem: new cp Symptoms: have improved cp Condition: Stable cp Diagnosis - Patient's intentional underdosing of medication regimen for other reason cp Followup: cp - With: Private Physician - When: 2 - 3 days - Reason: Recheck today's complaints Discharge Instructions: - Discharge Summary Sheet cp - Prothrombin Time, International Normalized Ratio Test cp Forms: - Medication Reconciliation Form cp - Thank You Letter cp - Antibiotic Education cp - Prescription Opioid Use cp Prescriptions: - Warfarin 5 mg Oral Tablet - take 1 tablet by ORAL route once daily; 20 tablet; Refills: 0, Product cp Selection Permitted Signatures: Dispatcher Med[facility] HospitalSolitario Alberto MD MD kdr Calderon, Audri, RN RN aa5 Jose A Alejandro PA PA cp Cristian Amaya RN RN bp Bianca Khan RN RN bs2 Corrections: (The following items were deleted from the chart) 17:11 05/03 18:20 Patient reports taking 5 mg Warfarin daily and reports taking last dose 2 cp days ago. Patient reports she lives in [facility] but does not have a local physician. No complaints expressed.. cp
--- NOTE | 2021-05-03 19:16 | ER ---
Nurse's Notes [facility] Name: Silke Dill Age: 65 yrs Sex: Female : 1955 Arrival Date: 05/03/2021 Time: 17:24 Bed 2 Private MD: Diagnosis: Patient's intentional underdosing of medication regimen for other reason Presentation: 05/03 17:56 Chief complaint: Patient states: "I've been out of coumadin for 2 days and I need a aa5 refill". Pt denies any complaints other than need for medication refill. 17:56 Coronavirus screen: At this time, the client does not indicate any symptoms associated aa5 with coronavirus-19. Ebola Screen: No symptoms or risks identified at this time. Initial Sepsis Screen: Does the patient meet any 2 criteria? No. Patient's initial sepsis screen is negative. Does the patient have a suspected source of infection? No. Patient's initial sepsis screen is negative. Risk Assessment: Do you want to hurt yourself or someone else? Patient reports no desire to harm self or others. Onset of symptoms was May 03, 2021. 17:56 Acuity: RASHAAD 4 aa5 17:56 Method Of Arrival: Wheelchair aa5 Triage Assessment: 18:00 General: Appears in no apparent distress. comfortable, Behavior is cooperative, bp appropriate for age, anxious. Pain: Denies pain. EENT: No deficits noted. Neuro: Level of Consciousness is awake, alert, obeys commands, Oriented to Appropriate for age. Cardiovascular: No deficits noted. Respiratory: No deficits noted. GI: No signs and/or symptoms were reported involving the gastrointestinal system. : No signs and/or symptoms were reported regarding the genitourinary system. Derm: No deficits noted. Musculoskeletal: No deficits noted. Historical: - Allergies: 17:56 PENICILLINS; aa5 - PMHx: 17:56 Diabetes - NIDDM; Hypertension; Vertigo; aa5 - Immunization history:: Adult Immunizations unknown. - Social history:: Smoking status: unknown. Screenin:20 Abuse screen: Denies threats or abuse. Nutritional screening: No deficits noted. aa5 Tuberculosis screening: No symptoms or risk factors identified. Fall Risk IV access (20 points). Ambulatory Aid- Crutches/Cane/Walker (15 pts). Total Carr Fall Scale indicates Low Risk Score (25-44 pts). Fall prevention measures have been instituted. Side Rails Up X 2 Placed close to Nursing Station. Assessment: 18:00 General: SEE TRIAGE NOTE. bp Vital Signs: 18:00 BP 127 / 76; Pulse 77; Resp 16; Temp 97.9; Pulse Ox 100% ; bp ED Course: 17:24 Patient arrived in ED. am2 17:50 Jose A Alejandro PA is PHCP. cp 17:50 Solitario Blair MD is Attending Physician. cp 17:56 Arm band placed on. aa5 17:56 Patient has correct armband on for positive identification. Bed in low position. Call aa5 light in reach. Side rails up X 1. 18:10 Initial lab(s) drawn, by me, sent to lab. Inserted saline lock: 20 gauge in right aa5 antecubital area, using aseptic technique. Blood collected. 18:41 Triage completed. aa5 19:30 Primary Nurse role handed off by Zee Steele RN mw2 19:33 Bianca Khan, RN is Primary Nurse. bs2 19:33 No provider procedures requiring assistance completed. IV discontinued, intact, bs2 bleeding controlled, No redness/swelling at site. Administered Medications: 19:33 Drug: Warfarin 7.5 mg Route: PO; bs2 Outcome: 19:16 Discharge ordered by MD. cp 19:33 Discharged to home ambulatory, with family. bs2 19:33 Condition: improved 19:33 Discharge instructions given to patient, Instructed on discharge instructions, follow up and referral plans. medication usage, Demonstrated understanding of instructions, follow-up care, medications, Prescriptions given X 1. 19:34 Patient left the ED. bs2 Signatures: Zee Steele, RN RN aa5 Jose A Alejandro PA PA Karen Perez am2 Cristian Amaya RN RN bp Billy Chapman mw2 Bianca Khan RN RN bs2 Corrections: (The following items were deleted from the chart) 19:22 18:40 Zee Steele RN is Primary Nurse. aa5 aa5
[2021-05-03 19:41] VITALS: BP 127/76; TEMP 97.9; O2SAT 100
[2021-05-03] MEDS ORDERED: WARFARIN SODIUM 5 MG TAB ONE (20:22)
== END 2021-05-03 19:34 | disposition home or self-care (01) ==
LOC: ER 17:21
DX: Z91.128 Patient's intentional underdosing of medication regimen for other reason (principal); I10 Essential (primary) hypertension; Z88.0 Allergy status to penicillin
CPT/HCPCS: 36415; 80048; 85025; 85610; 99284

== ENCOUNTER 2021-10-28 19:54 | Emergency (ER) | payer OTHER ==
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
[2021-10-28 21:48] VITALS: BP 140/84; TEMP 98.2; O2SAT 100
== END 2021-10-28 21:33 | disposition left against medical advice (07) ==
LOC: ER 19:54
DX: Z53.21 Procedure and treatment not carried out due to patient leaving prior to being seen by health care provider (principal)
CPT/HCPCS: 99281